=== PATIENT | female | born 1975 | race Caucasian/White ===

== ENCOUNTER 2017-06-28 20:54 | Emergency (ER) | payer BC ==
[2017-06-28 21:04] VITALS: BP 142/86
--- NOTE | 2017-06-28 21:07 | UC ---
Pediatric ENT HPI - HPI Summary HPI Summary: 42 YEAR OLD FEMALE PRESENTS WITH COMPLAINS OF SORE THROAT AND UNABLE TO SWALLOW. THE PATIENT HAD A NEGATIVE RAPID STREP ASSAY AND HAS FAILED OUT PATIENT ABX THERAPY. I AM CONCERNED ABOUT BILATERAL ABSCESS AND WILL SEND HER TO THE ER. - History Of Current Complaint Chief Complaint: UCRespiratory Stated Complaint: SORE THROAT Time Seen by Provider: 06/28/17 21:06 Hx Obtained From: Patient Onset/Duration: Lasting Days Timing: Days Severity Initially: Severe Severity Currently: Severe Pain Scale Used: 0-10 Numeric - 10 - Allergies/Home Medications Allergies/Adverse Reactions: Allergies Allergy/AdvReac Type Severity Reaction Status Date / Time No Known Allergies Allergy Verified 06/28/17 21:04 Home Medications: Home Medications Azithromycin [Azithromycin 500 MG TAB] 06/28/17 [History] [place] Carbonate [Lithobid] 900 mg 06/28/17 [History] lamoTRIgine TAB(*) [Lamictal TAB(*)] 06/28/17 [History] Past Medical History Previously Healthy: Yes - Family History Family History of Asthma: No - Social History Maternal Substance Use: No - Immunization History Immunizations Up to Date: No Review Of Systems Constitutional: Fever Eyes: Negative ENT: Throat Pain Cardiovascular: Negative Respiratory: Negative Gastrointestinal: Negative Genitourinary: Negative Musculoskeletal: Negative Skin: Negative Neurological: Negative Psychological: Negative All Other Systems Reviewed And Are Negative: Yes Physical Exam Triage Information Reviewed: Yes Vital Signs: Initial Vital Signs Temp 36.4 C 06/28/17 20:56 Pulse 106 06/28/17 20:56 Resp 16 06/28/17 20:56 BP 142/86 06/28/17 20:56 Pulse Ox 98 06/28/17 20:56 Vital Signs Reviewed: Yes Appearance: Ill-Appearing Eyes: Positive: Normal ENT: Positive: Pharyngeal erythema, Tonsillar swelling, Tonsillar exudate, Trismus Neck: Positive: Supple Respiratory: Positive: Chest non-tender Cardiovascular: Positive: Normal Abdomen Description: Positive: Soft, Nontender, 4, No Organomegaly Bowel Sounds: Positive: Present Musculoskeletal: Positive: Normal Neurological: Positive: Normal Psychological: Positive: Normal Pediatric EENT Course/Dx - Differential Dx/Diagnosis Provider Diagnoses: PHARYNGITIS. TONSILLAR ABSCESS Discharge - Discharge Plan Condition: Stable Disposition: OTHER Discharge Disposition Comment: PATIENT SUGGESTED TO GO TO THE ER Patient Education Materials: Pharyngitis (ED), Abscess (ED) Referrals: Lupe Arias NP [Primary Care Provider] - Additional Instructions: PATIENT SUGGESTED TO GO TO THE ER FOR ENGORGING BILATERAL TONSILAR ABSCESS. I WILL SEND HER TO THE ER.
== END 2017-06-28 21:32 ==
LOC: UCEAST 20:54
DX: J02.9 Acute pharyngitis, unspecified (principal); J36 Peritonsillar abscess
CPT/HCPCS: 87070; 87651; 99212; G0463

== ENCOUNTER 2017-06-28 21:43 | Emergency (ER) | payer BC ==
[2017-06-28] MEDS ORDERED: Clindamycin 600 MG IVPREMIX(* 600 MG/50 ML SDV IV ONE (22:47)
[2017-06-28] MEDS ORDERED: NS 0.9% 1000 ML* 2,000 ML IV ONE (22:48)
[2017-06-28] MEDS ORDERED: Ketorolac INJ* 30 MG/ML 1 ML VIAL IV PUSH ONE (22:48)
[2017-06-28] MEDS ORDERED: Dexamethasone IV* 4 MG/ML 1 ML (4 MG) IV SLOW PU ONE (22:48)
[2017-06-28 23:43] LABS: Hematocrit 40 % (35-47); Hemoglobin 13.3 g/dl (12.0-16.0); Mean Corpuscular HGB Conc 33 g/dl (31-36); Mean Corpuscular Hemoglobin 31 pg (27-31); Mean Corpuscular Volume 93 fL (80-97); Mean Platelet Volume 10 um3 (7.4-10.4); Red Blood Count 4.33 10^6/ul (4.0-5.4); Red Cell Distribution Width 13 % (10.5-15)
[2017-06-28 23:55] LABS: Potassium 3.9 mmol/L (3.5-5.0)
[2017-06-28 23:56] LABS: BUN/Creatinine Ratio 10.8 (8-20); Calcium 10.1 mg/dL (8.6-10.3); EGFR African American 111.2 (>60); EGFR Non-African American 86.5 (>60); Total Bilirubin 0.4 mg/dL (0.2-1.0)
--- NOTE | 2017-06-29 00:07 | ED ---
Throat Pain/Nasal Congestion - HPI Summary HPI Summary: 42F presents with sore throat since Fri. on she was placed on azithromycin for her throat. She states since then the swelling has increase. She has been having increased pain with swallowing. She is still able to swallow liquids. She voice has changed. She denies any chest pain or SOB. She has been taking Tylenol and ibuprofen without relief. She denies any history of strept. had negative strept at and was sent for bilateral peritonsillar abscess. She is not drooling. she denies any fever. She denies any sinus congestion or ear pain. - History of Current Complaint Chief Complaint: EDThroatPain Time Seen by Provider: 06/28/17 22:33 - Allergies/Home Medications Allergies/Adverse Reactions: Allergies Allergy/AdvReac Type Severity Reaction Status Date / Time No Known Allergies Allergy Verified 06/28/17 22:43 PMH/Surg Hx/FS Hx/Imm Hx Endocrine/Hematology History: Denies: Hx Anticoagulant Therapy Cardiovascular History: Denies: Hx Hypertension - Cancer History Hx Chemotherapy: No Hx Radiation Therapy: No - Surgical History Surgery Procedure, Year, and Place: none - Immunization History Date of Tetanus Vaccine: unk Date of Influenza Vaccine: unk Infectious Disease History: No Infectious Disease History: Denies: Traveled Outside the [place] in Last 30 Days - Family History Known Family History: Positive: Hypertension - Social History Alcohol Use: Weekly Substance Use Type: Reports: None Smoking Status (MU): Current Every Day Smoker Type: Cigarettes Length of Time of Smoking/Using Tobacco: 07/17 PPD Review of Systems Negative: Fever Positive: Sore Throat Negative: Chest Pain Negative: Shortness Of Breath All Other Systems Reviewed And Are Negative: Yes Physical Exam Triage Information Reviewed: Yes Vital Signs On Initial Exam: Initial Vitals Temp Pulse Resp BP Pulse Ox 98.7 F 96 14 133/110 98 06/28/17 21:52 06/28/17 21:52 06/28/17 21:52 06/28/17 21:52 06/28/17 21:52 Vital Signs Reviewed: Yes Appearance: Positive: Well-Appearing Skin: Positive: Warm, Dry Head/Face: Positive: Normal Head/Face Inspection Eyes: Positive: Normal, EOMI, HODAN, Conjunctiva Clear ENT: Positive: Pharyngeal erythema, Tonsillar swelling - +#, Tonsillar exudate, Muffled voice, Uvula midline, Other - soft palate symmetric. Negative: Trismus Neck: Positive: Supple, Tenderness @ - cervical lymph nodes Respiratory/Lung Sounds: Positive: Clear to Auscultation, Breath Sounds Present Cardiovascular: Positive: Normal, RRR Abdomen Description: Positive: No Organomegaly, Soft Bowel Sounds: Positive: Present Musculoskeletal: Positive: Normal Neurological: Positive: Normal Psychiatric: Positive: Normal - Lisa Coma Scale Coma Scale Total: 15 Diagnostics - Vital Signs Vital Signs Temp Pulse Resp BP Pulse Ox 06/28/17 21:52 98.7 F 96 14 133/110 98 - Laboratory Lab Results: Lab Results 06/28/17 06/28/17 Range/Units 23:30 23:30 WBC 9.0 (3.5-10.8) 10^3/ul RBC 4.33 (4.0-5.4) 10^6/ul Hgb 13.3 (12.0-16.0) g/dl Hct 40 (35-47) % MCV 93 (80-97) fL MCH 31 (27-31) pg MCHC 33 (31-36) g/dl RDW 13 (10.5-15) % Plt Count 197 (150-450) 10^3/ul MPV 10 (7.4-10.4) um3 Neut % (Auto) 83.5 H (38-83) % Lymph % (Auto) 7.5 L (25-47) % [place] % (Auto) 8.1 (1-9) % Eos % (Auto) 0.7 (0-6) % Baso % (Auto) 0.2 (0-2) % Absolute Neuts (auto) 7.5 (1.5-7.7) 10^3/ul Absolute Lymphs (auto) 0.7 L (1.0-4.8) 10^3/ul Absolute Monos (auto) 0.7 (0-0.8) 10^3/ul Absolute Eos (auto) 0.1 (0-0.6) 10^3/ul Absolute Basos (auto) 0 (0-0.2) 10^3/ul Absolute Nucleated RBC 0 10^3/ul Nucleated RBC % 0 Sodium 136 (133-145) mmol/L Potassium 3.9 (3.5-5.0) mmol/L Chloride 107 (101-111) mmol/L Carbon Dioxide 22 (22-32) mmol/L Anion Gap 7 (2-11) mmol/L BUN 8 (6-24) mg/dL Creatinine 0.74 (0.51-0.95) mg/dL Est GFR ( Amer) 111.2 (>60) Est GFR (Non-Af Amer) 86.5 (>60) BUN/Creatinine Ratio 10.8 (8-20) Glucose 106 H (70-100) mg/dL Calcium 10.1 (8.6-10.3) mg/dL Total Bilirubin 0.40 (0.2-1.0) mg/dL AST 12 L (13-39) U/L ALT 15 (7-52) U/L Alkaline Phosphatase 51 (34-104) U/L Total Protein 7.0 (6.4-8.9) g/dL Albumin 4.0 (3.2-5.2) g/dL Globulin 3.0 (2-4) g/dL Albumin/Globulin Ratio 1.3 (1-3) Result Diagrams: 06/28/17 23:30 06/28/17 23:30 Lab Statement: Any lab studies that have been ordered have been reviewed, and results considered in the medical decision making process. - CT maxillary facil CT Interpretation: Positive (See Comments) - enlarge left greater than right palatine tonsils. no abscess CT Interpretation Completed By: Radiologist Re-Evaluation - Re-Evaluation First Eval Re-Evaluation Time: 01:31 Change: Improved Comment: feeling better, pain / EENT Course/Dx - Course Course Of Treatment: 42F presents with sore throat since Fri. on she was placed on azithromycin for her throat. She states since then the swelling has increase. She has been having increased pain with swallowing. She is still able to swallow liquids. She voice has changed. She denies any chest pain or SOB. She has been taking Tylenol and ibuprofen without relief. She denies any history of strept. had negative strept at and was sent for bilateral peritonsillar abscess. She is not drooling. she denies any fever. She denies any sinus congestion or ear pain. on exam tonsils+3 with exudate, uvula midline, soft palate symmetric. does not appear to be peristonsillar abscess but will get CT to make sure as has muffled voice. gave torodal, decradon and clindamycin and patient feeling better and less painful to swallow. CT: no abscess. will treat with decadron and clindamycin. gave referral for ent if not getting better. patient understand and agrees with plan. - Differential Diagnoses Differential Diagnoses: Peritonsillar Ulcer, Pharyngitis, Tonsilitis, Other - peritonsillar abscess - Diagnoses Provider Diagnoses: Acute pharyngitis, Tonsillitis Discharge - Discharge Plan Condition: Good Disposition: HOME Prescriptions: Clindamycin Cap(NF) [Clindamycin Cap 300 mg Cap(NF)] 300 mg PO TID #29 cap Dexamethasone TAB* [Decadron TAB*] 4 mg PO DAILY #4 tab Magic Mouth Was-ISHMAEL/MAAL/LIDO* 5 ml SWISH SWAL QID #100 ml Patient Education Materials: Pharyngitis (ED) Referrals: Nicholas Avila MD [Medical Doctor] - Lupe Arias NP [Primary Care Provider] - Additional Instructions: Take clindamycin three times a day for 10 days Take steroid once a day for 4 more days Follow up with ENT if no improvement in two days Can gargle salt water Can use cough drops or products such as cloraseptic spray Return to ED if develop fever does not respond to Tylenol or ibuprofen, inability to swallow, or difficulty breathing or any new or worsening symptoms
[2017-06-29] MEDS ORDERED: Iohexol 300* (CONTRAST) 10 ML SDV IV ONE (00:46)
[2017-06-29] MEDS ORDERED: Ondansetron INJ* 2 MG/ML VIAL IV ONE (01:25)
[2017-06-29] MEDS ORDERED: Morphine INJ* 2 MG/ML 1 ML CARPUJECT IV ONE (01:25)
[2017-06-29 04:29] VITALS: BP 124/80
--- NOTE | 2017-06-29 08:09 | RAD ---
HISTORY: Sore throat, muffled voice COMPARISONS: None TECHNIQUE: Multiple contiguous axial CT scans were obtained of the neck after the administration of nonionic intravenous contrast, with coronal and sagittal multiplanar reformations. FINDINGS: BRAIN AND ORBITS: The visualized brain and orbits are normal. PARANASAL SINUSES: There is a mucous retention cyst versus polypoid mucosal thickening of the left maxillary sinus. SALIVARY GLANDS: The parotid glands, submandibular glands, sublingual glands are normal. NASAL CAVITY/NASOPHARYNX: The nasal cavity and nasopharynx are normal. ORAL CAVITY/OROPHARYNX: There is enlargement of the palatine tonsils bilaterally without loculated fluid collection to suggest abscess. LARYNGEAL APPARATUS/HYPOPHARYNX: There is mucosal thickening of the base of the epiglottis and the aryepiglottic mucosa on the left. UPPER AIRWAY/UPPER ESOPHAGUS: The visualized upper airway and esophagus are normal. LUNG APICES: The lung apices are clear. THYROID GLAND: The thyroid gland is normal. LYMPH NODES: There are enlarged level 2 lymph nodes bilaterally measuring up to 1.7 cm in short axis. VASCULATURE: The vasculature is unremarkable. BONES AND SOFT TISSUES: Mild degenerative changes are noted. There is reversal of the normal cervical lordosis. OTHER: None. IMPRESSION: 1. LEFT SUPRAGLOTTIC LARYNGEAL MUCOSAL THICKENING. RECOMMEND CONSIDERATION OF CORRELATION WITH DIRECT VISUALIZATION TO EXCLUDE MUCOSAL NEOPLASM. 2. BILATERAL UPPER CERVICAL LYMPHADENOPATHY. 3. ENLARGEMENT OF THE PALATINE TONSILS, WITHOUT LOCULATED FLUID COLLECTION TO SUGGEST ABSCESS. THESE FINDINGS WERE REPORTED BY DR. EAGLE AT APPROXIMATELY 3:34 AM ON JUNE 29, 2017
== END 2017-06-29 04:15 | disposition home or self-care (01) ==
LOC: ED 21:43
DX: J02.9 Acute pharyngitis, unspecified (principal); F17.210 Nicotine dependence, cigarettes, uncomplicated; J03.90 Acute tonsillitis, unspecified
CPT/HCPCS: 36415; 70491; 80053; 85025; 96361; 96374; 96375; 99283; J1100; J1885; J2270; Q9967